=== PATIENT | male | born 1950 | race Caucasian/White ===

== ENCOUNTER 2016-11-26 22:00 | Observation (INO) | payer OTHER ==
--- NOTE | ~2016-11-26 | DS ---
Discharge Summary [facility] [address] [place]. [address] NAME: JERI DOE : 54 STATUS : ADM Lucía PAT#: [id number] AGE: 66 ADM/REG DATE : 11/26/16 MR#: [id number] REPORT SERV DATE: 11/29/16 DICTATED BY: SILVESTRE HOBBS DATE: 11/29/16 REPORT STATUS : Draft TRANSCRIBED BY: MODL DATE: 11/29/16 ADMISSION DATE: 11/26/2016 DISCHARGE DATE: 11/29/2016 HOSPITAL COURSE: This 66-year-old male has a known past medical history of long- standing organic brain syndrome, seizure disorder, and epilepsy since childhood. The seizure is generally well controlled as an outpatient. The patient comes in with several breakthrough seizures, increasing weakness, falls, instability, confusion and postictal sleepiness thereafter, and slowness. CT of the brain did not show any acute intracranial pathology. Significant pyuria was found, placed on IV Rocephin. Had a CT of abdomen and pelvis which showed large amount of retained stool and gas in colon and dilation of sigmoid up to 5 cm. The patient has no abdominal pain at this time and had a bowel movement yesterday. We will give mag citrate if needs another bowel movement per patient request. Had an MRI of the brain with and without, just showed atrophy, more in the cerebellar regions. No evidence of acute infarction I believe, mild gliotic changes though seen. Neurology was consulted, thought to have had a grand mal/partial seizures in the past, sees Dr. Delroy Lindo as an outpatient as noted. As a result, due to some changes in change mental status, it may represent response to underlying infection due to UTI. No other seizures recently since Aptiom 400 p.o. daily, seizures have been less severe and less frequent. As a result, recommendation is not to adjust or change any of the patient's antiepileptics at this time. Would recommend outpatient lipid panel, vitamin D levels, vitamin B12, folate, and thyroid panel. As a result of his increased risk of stroke per Neurology, we will start on aspirin 81, enteric coated. DISCHARGE MEDICATIONS: Discharge meds will be Omnicef 300 p.o. b.i.d. for 5 more days; Vimpat 100 p.o. b.i.d.; Lamictal 200 p.o. at bedtime, then also Lamictal 300 p.o. q.a.m.; Keppra 2 g p.o. b.i.d.; Aptiom 400 p.o. daily; aspirin, enteric coated, 81 p.o. daily; as well as Colace 100 p.o. b.i.d. The patient is walking around. Staff state the patient does not need any facility placement and would do with home health if the patient desires. Follow up with Neurology in four to six weeks and PCP in 2 weeks. Discharged home if okay with Neurology. Follow up with GI in 4 to 8 weeks for screening colonoscopy given the sigmoid dilation in the past and recently. The patient is without a Varela at this time. We would like to note his discharge diagnoses are urinary tract infection, encephalopathy, seizures, organic brain syndrome, and constipation. All questions were answered, it took well over 30 minutes to do. Discharge Summary [address] [address] NAME: JERI DOE : 54 STATUS : ADM Lucía PAT#: [id number] AGE: 66 ADM/REG DATE : 11/26/16 MR#: [id number] REPORT SERV DATE: 11/29/16 DICTATED BY: SILVESTRE HOBBS DATE: 11/29/16 REPORT STATUS : Draft TRANSCRIBED BY: NUZHAT DATE: 11/29/16 HENRY/NUZHAT Silvestre Hobbs DO / [id number] CC: Jose Washburn II, MD
--- NOTE | ~2016-11-26 | CN ---
Consultation Report [facility] [address] [place]. [address] NAME: JERI DOE : 54 STATUS : ADM Lucía PAT#: [id number] AGE: 66 ADM/REG DATE : 11/26/16 MR#: [id number] REPORT SERV DATE: 11/28/16 DICTATED BY: BERRY MORALES DATE: 11/27/16 REPORT STATUS : Draft TRANSCRIBED BY: MODRommel DATE: 11/27/16 NEUROLOGICAL EVALUATION-CONSULTATION DATE OF CONSULTATION: 11/27/2016 HISTORY OF PRESENT ILLNESS: The history was obtained from the patient's sister, who is present at the patient's bedside. The patient is a 66-year-old male with known history of seizure disorder since age 17. The patient's seizures have been characterized as being "as per sister" grand mal and partial seizures. The patient has been on multiple medications in the past, and in the past 4 to 5 years he has been followed by his private neurologist, Dr. Delroy Lindo whose practice located in [place] on [facility]. The patient has been doing relatively well on his medication especially since the new medication called Aptiom was added to the regimen of medicines. The patient has been on Lamictal 300 mg q.a.m. and 200 mg q.h.s., Keppra 1000 mg 2 tablets p.o. b.i.d., Vimpat 100 mg p.o. b.i.d., and Aptiom 400 mg p.o. daily. SOCIAL HISTORY: The patient lives with his sister and her . He has finished high school. Has been disabled because of his seizure disorder. The patient does not have history of smoking or alcohol use, or use of drugs. FAMILY HISTORY: Significant for history of cancer in the patient's father, but at age 52. Mother of "old age" at age 93. There is no family member who has history of seizure disorder. No history of CVA or other neurological conditions is present in the patient's family. REVIEW OF SYSTEMS: The patient's seizure disorder has been described as generalized tonic-clonic. The patient provided additional information when he became more alert, stated that he does have an aura prior to some of his seizures, he feels nervous and agitated. Stated also that some of the seizures come without any warning. The patient was hospitalized several years ago at [facility] with recurrent seizures, however, has not had frequent hospitalizations. He sees his neurologist every several months. REVIEW OF SYSTEMS: The patient's sister stated that the patient has had decreased appetite, has lost 5 to 10 pounds in the last year. The patient denied headaches, dizziness, denied difficulty with his vision, chewing, or swallowing. Denied loss of consciousness. Denied weakness or numbness involving his face or extremities. The patient denied history of TIA or CVA. The patient has not been taking any vitamins or additional medications. The patient has been started on IV antibiotics for his urinary tract infection, which were discovered on admission. The rest of 14 points review of system was negative. The patient does not have any history of surgery and no history of surgery for vagus nerve stimulator implant or epilepsy surgery. Aptiom was added 1 to 2 months ago. The patient's last EEG was couple of years ago. The patient did not have success with getting ambulatory EEGs in the past. The Consultation Report [address] [address] NAME: JERI DOE : 54 STATUS : ADM Lucía PAT#: [id number] AGE: 66 ADM/REG DATE : 11/26/16 MR#: [id number] REPORT SERV DATE: 11/28/16 DICTATED BY: BERRY MORALES DATE: 11/27/16 REPORT STATUS : Draft TRANSCRIBED BY: NUZHAT DATE: 11/27/16 patient's sister noted that the patient has been falling a lot recently. He has not had any fractures or dislocations. Sister stated there is no reason why the patient has been falling. The patient denied weakness or numbness since involving his face or extremities. Denied difficulty controlling his bowel or bladder. PHYSICAL EXAMINATION: GENERAL: The patient was initially asleep, awoken, participated in the conversation, however, was slow in responses and did not volunteer any information. VITAL SIGNS: Blood pressure 117/72, pulse was 74, respirations 16, temperature 97.9. HEAD AND NECK: Examination showed him to be normocephalic. There was no evidence of trauma. Auscultation of the neck showed no evidence of bruits. EYE: Sclerae were not icteric. Conjunctiva was pink. ENT: Showed tongue to be midline. No atrophy or fibrillations were noted. The patient had poor dentition. Airway appeared patent. Mallampati class I to II. NECK: Supple. There was no Kernig or Brudzinski. Cervical range of motion was not impaired. There was no JVD and no thyromegaly noted. CHEST: Symmetrical. LUNGS: Clear to auscultation. HEART: Regular S1, S2. No S3, S4, gallops were noted. ABDOMEN: Soft, nontender. Bowel sounds are present. EXTREMITIES: Showed no clubbing, cyanosis. There was no peripheral edema. SKIN: The patient, however, did show on examination of his skin, mild discoloration of the distal skin in both lower extremities. Also some ecchymosis from episodes of falling was noted, which was mild. NEUROLOGICAL EXAMINATION: The patient was alert, oriented to self, time, and place. His responses were slow, but appropriate. Mood and affect showed no evidence of significant abnormalities. Distant and recent memory difficult to evaluate the patient. Could provide some details of his medical history. Speech was fluent. There was no evidence of aphasia or dysarthria. Thought content and mood were appropriate. Cranial Nerve Examination: 2 through 12: Visual winkler on confrontation were intact. Funduscopic exam show no evidence of papilledema, hemorrhages, or exudates. Pupils were 3 mm equal, round, reactive to light and accommodation. Extraocular movements were full. There was no nystagmus. No limitation of upward or downward gaze was noted. Facial sensation, muscles of mastication, muscles of facial expression show no evidence of asymmetry or weakness. Lower cranial nerves were intact. Tongue was midline. No atrophy or fibrillations were noted. Palate elevated symmetrically. Sternocleidomastoid and trapezius muscles were normal. Shoulder shrug was normal. Motor exam: Muscle bulk and tone was normal. Strength was 5/5 throughout. Deep tendon reflexes were symmetrical, absent in lower extremities, 1+ over 2 in upper extremities. Sensory Exam: To pinprick, light touch, and vibration showed stocking distribution, decrease in sensory modalities as the changes were mild. Cerebellar exam: [id number]-[id number] appeared intact. [id number], the patient performed very slowly, did not appear to be ataxic. Gait was not tested at this time or tested with physical therapy. LABORATORY STUDIES: Sodium 147, potassium 4.3, chloride 110, BUN 13, creatinine 1.01, glomerular filtration rate 91, glucose 114, calcium 9, magnesium 2.3. WBC count 6, Consultation Report [facility] [id number] [place]. [address] NAME: JERI DOE : 54 STATUS : ADM Lucía PAT#: [id number] AGE: 66 ADM/REG DATE : 11/26/16 MR#: [id number] REPORT SERV DATE: 11/28/16 DICTATED BY: BERRY MORALES DATE: 11/27/16 REPORT STATUS : Draft TRANSCRIBED BY: MODRommel DATE: 11/27/16 hemoglobin 13.5, hematocrit 40.5, platelet count 178,000. PT/INR 1.1. Urinalysis was reviewed. The patient's urine appeared cloudy. Specific gravity 1.015. Protein was 100 mg/dL and glucose was 50. Ketones negative. Bilirubins negative. Large amount of blood, leukocytes, and nitrites were negative. Ascorbic acid negative. RBCs were 182. MRI of the brain showed unremarkable noncontrast head CT. No intracranial pathology. IMPRESSION: 1. Increased episodes of falling. Recent changes in mental status may represent response to underlying infection or systemic infection secondary to urinary tract infection. 2. History of seizure disorder since age 17. The patient appears to have mixed seizures, generalized and partial. As per the patient's sister and per the patient, has been doing well on the current regiment of medications, recent addition of Aptiom 400 mg a day as per the patient beneficial, his seizures are less severe or less frequent. Recommend not to adjust or change the patient's anticonvulsant medications at this time. The patient has a private neurologist who has been treating him in the past several years. It usually takes a longer time to achieve a balance of best seizure control by adjusting or adding anticonvulsant medications. Therefore, would recommend to leave it up to the patient's private neurologist to address that issue if needed. However, would recommend to obtain an MRI of the brain without and with contrast since the patient has had increased episodes of falling and as per the patient's clumsiness at times has had difficulty using his hands. The patient is in age group where he has an increased risk of strokes. We would recommend to obtain laboratory studies, which should include serum lipid panel, vitamin D levels, vitamin B12 and folate level, thyroid profile if not obtained on admission. The patient has had some weight loss in the last year. EEG to determine the patient may have had breakthrough seizures, which contributed to the patient's altered mental status prior to admission. Follow seizure precautions. No driving. No operating heavy movement machinery, climbing heights ladders or performing other activity which may endanger the patient or people around him. Continue telemetry to rule out recurrent cardiac arrhythmias and to monitor for any unusual changes in vital signs, seizure precautions. Thank you for allowing us to participate in this patient's care. The patient should follow with his neurologist, Dr. Delroy Lindo after being discharged from the hospital. FARHANA/MODRommel Berry Morales MD / [id number] CC: Jose Washburn II, MD
--- NOTE | ~2016-11-26 | HP ---
History And Physical [address] [place]. [address] NAME: JERI DOE : 54 STATUS : ADM Lucía PAT#: [id number] AGE: 66 ADM/REG DATE : 11/26/16 MR#: [id number] REPORT SERV DATE: 11/27/16 DICTATED BY: SAE NICK DATE: 11/27/16 REPORT STATUS : Draft TRANSCRIBED BY: MODL DATE: 11/27/16 DATE OF ADMISSION: 11/26/2016 CHIEF COMPLAINT: 66-year-old male presenting with uncontrolled seizures, increasing falls, and confusion. HISTORY OF PRESENTING ILLNESS: The patient's history was obtained through an interview with patient as well as the telephone interview with the patient's sister(who lives with the patient). The patient has longstanding organic brain syndrome with his seizure disorder since childhood. His seizures have generally been well controlled but over the last week he has had several breakthrough seizures. Sister is very concerned about increasing weakness, some falls, instability, and increasing confusion as well. The patient often acts as if he is "postictal" with sleepiness and lack of concentration and confusion and slowness. Then, finally on the night leading up to admission, patient had multiple seizures that were uncontrolled. The patient has no significant urinary symptoms. No urinary frequency. No urinary incontinence. He has really no complaints at all. No headache. No chest pain. No shortness of breath. No nausea or vomiting. No fevers or chills. The sister describes a very poor appetite. REVIEW OF SYSTEMS: Otherwise, a 14-point review of systems was obtained and was negative. PAST MEDICAL HISTORY: 1. Organic brain syndrome. 2. Seizure disorder since childhood. 3. No stroke. No heart disease. PAST SURGICAL HISTORY: Denies any surgeries. ALLERGIES: NO KNOWN DRUG ALLERGIES. SOCIAL HISTORY: Lives in [place], [place] with his sister. He has no children. Quit smoking years ago. No alcohol abuse. He is on disability. He has two brothers who live locally as well. He is active in his yarsanism. History And Physical [address] [place]. [address] NAME: JERI DOE : 54 STATUS : ADM Lucía PAT#: [id number] AGE: 66 ADM/REG DATE : 11/26/16 MR#: [id number] REPORT SERV DATE: 11/27/16 DICTATED BY: SAE NICK DATE: 11/27/16 REPORT STATUS : Draft TRANSCRIBED BY: NUZHAT DATE: 11/27/16 FAMILY HISTORY: Mother and father are both healthy. There is no family seizure history. CURRENT MEDICATIONS: Include at least Lamictal 200 mg p.o. b.i.d. and Keppra 2000 mg p.o. b.i.d., but Pharmacy has specifically been requested to investigate the patient's complete home medication list. PHYSICAL EXAMINATION: VITAL SIGNS: Temperature 98.9, pulse 84, blood pressure 128/81, respiratory rate 16, O2 saturation 93% on room air. GENERAL: An ill-appearing male, chronically ill in appearance, no acute toxicity or distress. HEENT: Pupils equal, round, and reactive to light. No conjunctival pallor. No scleral icterus. Nares are patent. Oropharynx is clear of obstruction. Mildly dry mucous membranes. NECK: Trachea midline. No thyromegaly. LYMPH: No cervical lymphadenopathy. No supraclavicular lymphadenopathy. No inguinal lymphadenopathy. RESPIRATORY: Clear to auscultation at bases. No wheezes, rales, or rhonchi. Normal respiratory effort. CARDIOVASCULAR: Regular rate and rhythm. No murmurs, rubs, or gallops. No extremity edema is appreciated. ABDOMEN: Soft, nontender, nondistended. Normal bowel sounds auscultated throughout. No organomegaly. DERMATOLOGICAL: Warm and dry extremities. No pallor. No cyanosis. PSYCHIATRIC: The patient is very slow in responses, but he is alert, appropriate, and actually oriented x3. He has a flat affect but claims to be in a good mood. LABORATORY DATA: White blood count 6.3, hemoglobin 14, hematocrit 42, platelets 218. Sodium 144, potassium 3.3, chloride 109, bicarb 25, BUN 14, creatinine 1.1, glucose 121, troponin negative. Liver enzymes within normal limits. INR 1.0. Urinalysis shows greater than 182 white blood cells, greater than 182 red blood cells, large leukocyte esterase, and positive nitrites. STUDIES: 1. Chest x-ray by my own evaluation shows no acute cardiopulmonary process. 2. EKG by my own evaluation shows sinus rhythm, no major abnormalities. 3. CT scan of the brain without contrast shows no acute intracranial process. ASSESSMENT AND PLAN: 1. Seizures. Check EEG. Obtain Neurology consult. Place on IV Keppra. 2. Urinary tract infection with hematuria. Check CT scan of the abdomen and pelvis with renal stone protocol. Check postvoid residual. Place on IV antibiotics. Check urine culture. 3. Organic brain syndrome. History And Physical [address] [address] NAME: JERI DOE : 54 STATUS : ADM Lucía PAT#: [id number] AGE: 66 ADM/REG DATE : 11/26/16 MR#: [id number] REPORT SERV DATE: 11/27/16 DICTATED BY: SAE NICK DATE: 11/27/16 REPORT STATUS : Draft TRANSCRIBED BY: NUZHAT DATE: 11/27/16 KPRommel/NUZHAT Sae Nick M.D. / [id number] CC: Jose Washburn II, MD
--- NOTE | ~2016-11-26 | EEG ---
Electroencephalogram [facility] [address] [place]. [address] NAME: JERI DOE : 54 STATUS : DIS Lucía PAT#: [id number] AGE: 66 ADM/REG DATE : 11/26/16 MR#: [id number] REPORT SERV DATE: 11/29/16 DICTATED BY: BERRY MORALES DATE: 11/29/16 REPORT STATUS : Draft TRANSCRIBED BY: NUZHAT DATE: 11/29/16 ELECTROENCEPHALOGRAPHY REPORT REQUESTING PHYSICIANS: 1. Jose Washburn II, MD. 2. Berry Morales. INTERPRETING PHYSICIAN: Berry Morales MD. EEG NUMBER: [id number]. REASON FOR EEG: Breakthrough seizures in a patient with longstanding seizure disorder, on multiple medications, which included Keppra, Vimpat, Lamictal, and Aptiom. 23 surface electrodes, 10-20 international placement was used. Photic stimulation and hyperventilation were utilized as activation techniques. Video monitoring was used. The patient was noted to be awake, drowsy, and asleep throughout the study. Background activity consisted of moderate to high voltage poorly organized 7-8 cycles per second located in the posterior head regions. This activity attenuated well with the eye opening maneuvers. Slower frequencies, which appeared to be rhythmic at times, more pronounced in the anterior head regions were seen throughout the recording. The patient at that time showed no evidence of tonic-clonic activity. EKG monitoring showed sinus rhythm, rate of approximately 68 beats per minute. Large amount of low-voltage fast activity was also noted scattered throughout. During light sleep, sleep spindles were observed. No significant asymmetry was noted. IMPRESSION: ABNORMAL EEG CHARACTERIZED BY PRESENCE OF DIFFUSE SLOWING OF CEREBRAL ACTIVITY. NO OVERT PAROXYSMAL OR EPILEPTIFORM ACTIVITY WAS NOTED, HOWEVER, THE PATIENT DID DISPLAY CHANGES OF RHYTHMIC FRONTAL ACTIVITY, WHICH APPEARED INTERMITTENTLY AND MAY REPRESENT PREICTAL ACTIVITY. SOME OF THE SLOWER WAVEFORMS ALSO INCLUDED A SHARP COMPONENT. THE ABOVE MENTIONED ABNORMALITIES ARE DIFFICULT TO CHARACTERIZE IN VIEW OF THE FACT THAT WE DO NOT HAVE THIS PATIENT'S BASELINE EEG. THE PATIENT HAS A SEIZURE DISORDER SINCE AGE 17. CLINICAL CORRELATION IS RECOMMENDED. MAYRA/NUZHAT Berry Morales MD / [id number] CC: Etienne Christianson DO
[2016-11-26 23:00] LABS: BASOPHILS 0.3 %; BASOPHILS ABSOLUTE 0.02 10/3/uL (0.0-0.16); EOSINOPHILS 0.3 %; EOSINOPHILS ABSOLUTE 0.02 10/3/uL (0.0-0.53); ER CBC TAT 0 Hrs 03 Mins; HEMATOCRIT 42.2 % (40.0-51.0); HEMOGLOBIN 14.3 g/dL (13.6-17.8); IMMATURE GRANULOCYTES 0.2 %; IMMATURE GRANULOCYTES ABSOLUTE 0.01 10/3/uL (0.0-0.11); LYMPHOCYTES 11.2 %; MEAN CORPUS HGB CONC 33.9 g/dL (32.0-36.0); MEAN CORPUSCULAR HEMOGLOB 33.2 pg (26.0-34.0); MEAN CORPUSCULAR VOLUME 97.9 fL (80-100); MEAN PLATELET VOLUME 8.7 fL (9.2-13.0); MONOCYTES 15.8 %; MONOCYTES ABSOLUTE 0.99 10/3/uL (0.21-1.20); NEUTROPHILS 72.2 %; NEUTROPHILS ABSOLUTE 4.52 10/3/uL (2.02-8.40); PLATELET COUNT 218 10/3/uL (150-400); RBC DISTRIBUTION WIDTH 12.6 % (12.0-16.0); RED CELL COUNT 4.31 10/6/uL (4.7-6.1); WHITE BLOOD CELLS 6.3 10/3/uL (4.5-10.5)
[2016-11-26 23:02] LABS: MANUAL DIFF NO %
[2016-11-26 23:14] LABS: PARTIAL THROMBO TIME 27.5 SEC (22.5-37.2); PROTIME (NOT ORD) 13.2 SEC (12.0-14.5)
[2016-11-26 23:18] LABS: ALBUMIN 4.1 G/DL (3.5-5.0); ALKALINE PHOSPHATASE 91 U/L (45-117); BUN (BLOOD UREA NITROGEN) 14 MG/DL (6-23); CALCIUM, SERUM 9.2 MG/DL (8.5-10.4); CHLORIDE, SERUM 109 MMOL/L (96-112); CO2 (CARBON DIOXIDE) 25 MMOL/L (24-34); GFR AFRICAN AMERICAN 82 ML/MIN (>=60); GFR NON AFRICAN AMERICAN 71 ML/MIN (>=60); GLUCOSE, SERUM 121 MG/DL (60-99); POTASSIUM, SERUM 4.3 MMOL/L (3.5-5.3); SGOT(AST) 16 U/L (5-40); SGPT(ALT) 19 U/L (5-65); SODIUM, SERUM 144 MMOL/L (135-148); TOTAL BILIRUBIN 0.5 MG/DL (0-1.2); TOTAL PROTEIN 8.1 G/DL (6.0-8.5); TROPONIN I <0.02 NG/ML (<0.05)
[2016-11-27 03:28] LABS: ASCORBIC ACID (UR NOT ORDER) NEG (NEG); BILIRUBIN, URINE NEGATIVE (NEG); ER URINALYSIS TAT 0 Hrs 00 Mins; KETONE, URINE TRACE MG/DL (NEG); LEUKOCYTE ESTERASE(NOT OR LARGE (NEG); NITRITE (URINE) POS (NEG)
[2016-11-27 03:29] LABS: WBC (NOT ORDERED) (RFLEX) > 182 (0-5)
[2016-11-27 12:10] LABS: BASOPHILS 0.5 %; BASOPHILS ABSOLUTE 0.03 10/3/uL (0.0-0.16); EOSINOPHILS ABSOLUTE 0.06 10/3/uL (0.0-0.53); HEMATOCRIT 40.5 % (40.0-51.0); HEMOGLOBIN 13.5 g/dL (13.6-17.8); IMMATURE GRANULOCYTES 0.2 %; IMMATURE GRANULOCYTES ABSOLUTE 0.01 10/3/uL (0.0-0.11); LYMPHOCYTES 18.7 %; LYMPHOCYTES ABSOLUTE 1.11 10/3/uL (0.67-4.30); MANUAL DIFF NO %; MEAN CORPUS HGB CONC 33.3 g/dL (32.0-36.0); MEAN CORPUSCULAR HEMOGLOB 32.8 pg (26.0-34.0); MEAN CORPUSCULAR VOLUME 98.3 fL (80-100); MEAN PLATELET VOLUME 8.5 fL (9.2-13.0); MONOCYTES ABSOLUTE 1.01 10/3/uL (0.21-1.20); NEUTROPHILS 62.6 %; NEUTROPHILS ABSOLUTE 3.73 10/3/uL (2.02-8.40); PLATELET COUNT 178 10/3/uL (150-400); RBC DISTRIBUTION WIDTH 12.9 % (12.0-16.0); RED CELL COUNT 4.12 10/6/uL (4.7-6.1)
[2016-11-27 12:17] LABS: INTERNATIONAL NORMAL RATI 1.1 UNITS (-); PARTIAL THROMBO TIME 34.6 SEC (22.5-37.2)
[2016-11-27 12:37] LABS: ALBUMIN 3.5 G/DL (3.5-5.0); BUN (BLOOD UREA NITROGEN) 13 MG/DL (6-23); CHLORIDE, SERUM 110 MMOL/L (96-112); CO2 (CARBON DIOXIDE) 29 MMOL/L (24-34); CREATININE 1.01 MG/DL (0.70-1.30); GFR AFRICAN AMERICAN 91 ML/MIN (>=60); GFR NON AFRICAN AMERICAN 78 ML/MIN (>=60); GLOBULIN 3.6 G/DL (2.5-4.1); GLUCOSE, SERUM 114 MG/DL (60-99); POTASSIUM, SERUM 4.5 MMOL/L (3.5-5.3); SGOT(AST) 13 U/L (5-40); SGPT(ALT) 18 U/L (5-65); SODIUM, SERUM 147 MMOL/L (135-148); TOTAL BILIRUBIN 0.5 MG/DL (0-1.2); TOTAL PROTEIN 7.1 G/DL (6.0-8.5)
[2016-11-27 12:41] LABS: ALKALINE PHOSPHATASE 79 U/L (45-117)
[2016-11-27] MEDS ORDERED: LAMICTAL200 MG PO (17:31)
[2016-11-27] MEDS ORDERED: LAMICTAL10 PO (17:31)
[2016-11-27] MEDS ORDERED: APTIOM PO (17:31)
[2016-11-27] MEDS ORDERED: VIMPAT100 MG PO (17:31)
[2016-11-28 10:39] LABS: BUN (BLOOD UREA NITROGEN) 14 MG/DL (6-23); CALCIUM, SERUM 9.1 MG/DL (8.5-10.4); CHLORIDE, SERUM 107 MMOL/L (96-112); CHOLESTEROL 200 MG/DL (< 200); CO2 (CARBON DIOXIDE) 28 MMOL/L (24-34); CREATININE 0.97 MG/DL (0.70-1.30); GFR AFRICAN AMERICAN 95 ML/MIN (>=60); GFR NON AFRICAN AMERICAN 82 ML/MIN (>=60); GLUCOSE, SERUM 111 MG/DL (60-99); HDL CHOLESTEROL 67 MG/DL (> 39); LDL CHOLESTEROL 124 MG/DL (< 130); NON-HDL CHOLESTEROL 133 MG/DL (< 160); POTASSIUM, SERUM 3.7 MMOL/L (3.5-5.3); SODIUM, SERUM 143 MMOL/L (135-148); TRIGLYCERIDE 47 MG/DL (< 150)
[2016-11-28 10:43] LABS: FOLATE 7.6 NG/ML (>5.2)
[2016-11-29] MEDS ORDERED: DSS PO (10:59)
[2016-11-29] MEDS ORDERED: HALF81 PO (11:00)
[2016-11-29] MEDS ORDERED: OMNICEF300 PO (11:01)
[2016-11-29] MEDS ORDERED: LAMICTAL200 MG PO (11:03)
[2016-11-29] MEDS ORDERED: LAMICTAL10 PO (11:06)
[2016-11-29] MEDS ORDERED: KEPPRA1000 MG PO (11:07)
== END 2016-11-29 16:45 | disposition home or self-care (01) ==
LOC: ER 22:00 → 6NO 23:59
PROVIDERS: Emergency Medicine; Hospitalist; Nurse Practitioner; Nurse Practitioner Family
DX: G40.909 Epilepsy, unspecified, not intractable, without status epilepticus (principal)
CPT/HCPCS: 70450; 70553; 71020; 74176; 80048; 80053; 80061; 81001; 82306; 82607; 82746; 83735; 84443; 84484; 85025; 85610; 85730; 87086; 90686; 93005; 95819; 96365; 96372; 96375; 96376; 99285; A9270-GY; A9577; G0008; G0378; J1953